=== PATIENT | female | born 1955 | race Caucasian/White ===

== ENCOUNTER 2018-03-10 13:41 | Day surgery (SDC) | payer BC ==
[~2018-03-10] VITALS: Ht 162.6 cm; Wt 62.7 kg
[2018-03-10] VITALS (7 sets, daily range): BP systolic 99–120; BP diastolic 65–77
[2018-03-10] MEDS ORDERED: normal saline 1000ml 1,000 ML IV SCH (13:55)
[2018-03-10] MEDS ORDERED: diphenhydrAMINE 25mg capsule PO ONE (13:55)
[2018-03-10] MEDS ORDERED: LIDOcaine/PRILOcaine 5gm cream TP ONE (14:00)
[2018-03-10] MEDS ORDERED: LORazepam 0.5 MG tablet PO ONE (14:00)
[2018-03-10] MEDS ORDERED: BETA15CR4 TOP (14:24)
[2018-03-10] MEDS ORDERED: MOME45CR20 TOP (14:24)
[2018-03-10] MEDS ORDERED: CYCL-394 (14:27)
[2018-03-10] MEDS ORDERED: RANI150C4 PO (14:27)
[2018-03-10] MEDS ORDERED: LEVA15HF4 INH (14:27)
[2018-03-10] MEDS ORDERED: KEN0.1O TP (14:27)
[2018-03-10] MEDS ORDERED: UMEC1DIS (14:27)
[2018-03-10] MEDS ORDERED: nitroGLYCERIN-Tridil 50MG/D5W 0 ML IV ONE (16:11)
[2018-03-10] MEDS ORDERED: fentaNYL/PF 50MCG/1 ML 2ML syringe ONE (16:11)
[2018-03-10] MEDS ORDERED: verapamil 2.5 mg/ml inj IV ONE (16:11)
[2018-03-10] MEDS ORDERED: midazolam 2 mg/2 ml injection ONE (16:11)
[2018-03-10] MEDS ORDERED: LIDOcaine 1% (10mg/ml)w/preservative injection 20ml MDV ONE (16:12)
[2018-03-10] MEDS ORDERED: heparin 1,000unit/ml 10ml vial 0 ML ONE (16:12)
[2018-03-10] MEDS ORDERED: iohexol 350MG/ML 100ml bottle IV ONE (16:12)
[2018-03-10] MEDS ORDERED: ondansetron/PF 4mg/2ml inj IV PRN (17:15)
[2018-03-10] MEDS ORDERED: OXAZEpam 15mg capsule PO PRN (17:15)
[2018-03-10] MEDS ORDERED: proCHLORperazine 10 MG/2 ml inj IV PRN (17:15)
== END 2018-03-10 18:56 | disposition home or self-care (01) ==
LOC: SSTAY O 13:41
PROVIDERS: ATTEND Internal Medicine Interventional Cardiology
DX: I25.10 Atherosclerotic heart disease of native coronary artery without angina pectoris (principal); J44.9 Chronic obstructive pulmonary disease, unspecified; I25.2 Old myocardial infarction; F17.210 Nicotine dependence, cigarettes, uncomplicated; M19.90 Unspecified osteoarthritis, unspecified site; M79.7 Fibromyalgia; L40.8 Other psoriasis; Z88.1 Allergy status to other antibiotic agents; Z99.81 Dependence on supplemental oxygen; Z79.899 Other long term (current) drug therapy; Z82.49 Family history of ischemic heart disease and other diseases of the circulatory system; Z84.89 Family history of other specified conditions
CPT/HCPCS: 93005; 93458; 99152; A6257; C1769; J1644; J2001; J2250; J3010; J7030; Q0163; Q9967; A4620; J3490

== ENCOUNTER 2021-06-02 10:39 | Day surgery (SDC) | payer MEDICAID ==
[2021-06-02] VITALS (17 sets, daily range): BP systolic 106–123; BP diastolic 65–78
[~2021-06-02] VITALS: Ht 165.1 cm; Wt 66.0 kg
[~2021-06-02 10:39] MED LIST: BETA15CR4 TOP; CYCL-394; KEN0.1O TP; LEVA15HF4 INH; MOME45CR3 TOP; RANI150C4 PO; UMEC1DIS
[2021-06-02] MEDS ORDERED: normal saline 1000ml 1,000 ML IV PRN (11:00)
[2021-06-02] MEDS ORDERED: DULO-31 PO (11:02)
[2021-06-02] MEDS ORDERED: FLUT1BLS4 IH (11:02)
[2021-06-02] MEDS ORDERED: MELO-100 PO (11:03)
[2021-06-02] MEDS ORDERED: midazolam 1 mg/ML 2ml injection ONE (13:20)
[2021-06-02] MEDS ORDERED: fentaNYL/PF 50MCG/1 ML 2ML syringe ONE (13:20)
[2021-06-02] MEDS ORDERED: gelatin sponge, absorbable (Gelfoam 12-7MM) sponge TP ONE (13:46)
[2021-06-02] MEDS ORDERED: HYDROcodone/acetaminophen 5mg/325mg tablet PO PRN ×2 (14:00)
--- NOTE | 2021-06-02 14:12 | NUR ---
Pt in room, no distress noted, dsg CDI.
== END 2021-06-02 17:10 | disposition home or self-care (01) ==
LOC: SSTAY O 10:39
PROVIDERS: ATTEND Radiology Vascular & Interventional Radiology
DX: N28.89 Other specified disorders of kidney and ureter (principal); C64.1 Malignant neoplasm of right kidney, except renal pelvis; Z79.899 Other long term (current) drug therapy; Z82.49 Family history of ischemic heart disease and other diseases of the circulatory system
CPT/HCPCS: 50200; 77012; J2250; J3010; J7030